=== PATIENT | female | born 1995 | race Caucasian/White ===

== ENCOUNTER 2016-06-06 02:29 | Emergency (ER) | payer SELFPAY ==
--- NOTE | 2016-06-06 03:00 | NUR ---
PATIENT LEFT WITHOUT BEING SEEN BY DR. ORTIZ. NO FURTHER CARE PROVIDED FOR PATIENT.
== END 2016-06-06 03:00 | disposition left against medical advice (07) ==
LOC: MED 02:29
DX: F10.129 Alcohol abuse with intoxication, unspecified (principal); Z53.21 Procedure and treatment not carried out due to patient leaving prior to being seen by health care provider